=== PATIENT | male | born 1980 ===

== ENCOUNTER 2025-04-15 20:16 | Emergency (ER) | payer OTHER ==
[~2025-04-15] VITALS: Ht 177.8 cm; Wt 72.6 kg
[2025-04-15 20:34] VITALS: BP 121/87; O2SAT 99
[2025-04-15] MEDS ORDERED: DEPAKOTE ER500 MG PO (20:39)
[2025-04-15] MEDS ORDERED: NEURONTIN300 MG PO (20:39)
[2025-04-15] MEDS ORDERED: CLONAZEPAM0.5 MG PO (20:39)
[2025-04-15] MEDS ORDERED: ORPHENADRINE CITRATE 30 MG/ML AMPUL IM STA (20:56)
[2025-04-15] MEDS ORDERED: KETOROLAC TROMETHAMINE 30 MG VIAL IM STA (20:56)
[2025-04-15] MEDS ORDERED: DEXAMETHASONE SODIUM PHOSPHATE 4 MG/ML VIAL IM STA (20:56)
[2025-04-15] MEDS ORDERED: DEXAMETHASONE SODIUM PHOSPHATE 4 MG/ML VIAL ONE (21:02)
[2025-04-15] MEDS ORDERED: KETOROLAC TROMETHAMINE 30 MG VIAL ONE (21:02)
[2025-04-15] MEDS ORDERED: ORPHENADRINE CITRATE 30 MG/ML AMPUL ONE (21:02)
== END 2025-04-15 22:46 | disposition home or self-care (01) ==
LOC: ER 20:16
DX: R07.89 Other chest pain (principal); G89.11 Acute pain due to trauma; S09.8XXA Other specified injuries of head, initial encounter; V29.888A Rider (driver) (passenger) of other motorcycle injured in other specified transport accidents, initial encounter; Y93.89 Activity, other specified; Y92.413 State road as the place of occurrence of the external cause; S79.812A Other specified injuries of left hip, initial encounter